=== PATIENT | female | born 1955 ===

== ENCOUNTER 2017-12-14 08:36 | Emergency (ER) | payer OTHER ==
--- NOTE | 2017-12-14 08:52 | C.PDOC ---
History Of Present Illness 62 years old female with no PMHx presents to ED for complaints of diffuse abdominal pain associated with constipation and straining. Patient states she is visiting from [facility] since September. Patient also reports that she moves bowels everyday in hard and small amounts and noticed small amounts of bleeding few days ago and got concerned which prompted the ED visit. Patient also states she does not eat vegetables because they make her gassy, does not eat processed foods, and drinks a lot of water. Denies fever, chills, nausea, or vomiting. Patient states she has not taken any medication for constipation. Time Seen by Provider: 12/14/17 08:48 Chief Complaint (Nursing): Abdominal Pain History Per: Patient History/Exam Limitations: no limitations Onset/Duration Of Symptoms: Days Current Symptoms Are (Timing): Still Present Location Of Pain/Discomfort: Diffuse Radiation Of Pain To:: None Associated Symptoms: Constipation. denies: Fever, Chills, Nausea, Vomiting Exacerbating Factors: None Alleviating Factors: None Last Bowel Movement: Today Recent travel outside of the [place]: No Abnormal Vaginal Bleeding: No Past Medical History Reviewed: Historical Data, Nursing Documentation, Vital Signs Vital Signs: Last Vital Signs Temp 97.9 F 12/14/17 08:48 Pulse 71 12/14/17 08:48 Resp 16 12/14/17 08:48 BP 148/84 12/14/17 08:48 Pulse Ox 98 12/14/17 08:48 - Medical History PMH: No Chronic Diseases Family History: States: No Known Family Hx Review Of Systems Constitutional: Negative for: Fever, Chills Gastrointestinal: Positive for: Abdominal Pain (Diffuse ), Constipation ( Straining ), Hematochezia (Small amounts ). Negative for: Nausea, Vomiting, Diarrhea Skin: Negative for: Rash Neurological: Negative for: Weakness, Numbness Physical Exam - Physical Exam Appears: Non-toxic, No Acute Distress Skin: Normal Color, Warm, Dry, No Rash Head: Atraumatic, Normacephalic Eye(s): bilateral: Normal Inspection, PERRL, EOMI Oral Mucosa: Moist Neck: Normal ROM, Supple Chest: Symmetrical, No Tenderness Cardiovascular: Rhythm Regular, No Murmur Respiratory: Normal Breath Sounds, No Rales, No Rhonchi, No Wheezing Gastrointestinal/Abdominal: Normal Exam, Bowel Sounds (Active ), Soft, No Tenderness, No Guarding, No Rebound Rectal: Heme Negative, Other (Hard brown stool in Occult ) Extremity: Bilateral: Atraumatic, Normal Color And Temperature, Normal ROM Neurological/Psych: Oriented x3, Normal Speech Gait: Steady ED Course And Treatment - Other Rad Abdomen X-Ray X-Ray: Viewed By Me, Read By Radiologist Interpretation: Date of service: 12/14/2017. HISTORY: constipation. COMPARISON: None available. FINDINGS: BOWEL: Moderate constipation. Nonobstructive bowel gas pattern. No definite free air. BONES: Osseous demineralization. Degenerative changes. Mild scoliosis. OTHER FINDINGS: None. IMPRESSION: Moderate constipation. Medical Decision Making Medical Decision Making: Plan: * Ordered abdomen x-Ray and urinalysis (Occult blood) Progress: * Hemeoccult negative for blood. * Retained stool. * Sent home with Fleet relapse and pharmaceutical medication. Patient is stable for discharge. Disposition Counseled Patient/Family Regarding: Studies Performed, Diagnosis, Need For Followup, Rx Given - Disposition Referrals: [facility] [Outside] Disposition: HOME/ ROUTINE Disposition Time: 10:20 Condition: STABLE Additional Instructions: [place] bharti agua. No coma ball ni arroz. Sigua en la clinica. Prescriptions: Magnesium Citrate 295 ml PO BID #2 bot Phosphate Enema [Fleet Enema 135 Ml] 30 ml RC DAILY #2 nma Polyethylene Glycol 3350 [Miralax] 17 gm PO DAILY #12 ml Wheat Dextrin [Benefiber] 144 gm PO DAILY #1 powder Instructions: Constipation, Adult (DC) Forms: [facility] (Uruguayan), Gen Discharge Inst [place]ayan - POA Present On Arrival: None - Clinical Impression Clinical Impression: Constipation - Scribe Statement The provider has reviewed the documentation as recorded by the Ольгаibjuan daniel Hodges All medical record entries made by the Scribe were at my direction and personally dictated by me. I have reviewed the chart and agree that the record accurately reflects my personal performance of the history, physical exam, medical decision making, and the department course for this patient. I have also personally directed, reviewed, and agree with the discharge instructions and disposition.
[2017-12-14 08:57] VITALS: TEMP 97.9
--- NOTE | 2017-12-14 10:13 | RAD ---
Date of service: 12/14/2017 HISTORY: constipation COMPARISON: None available. FINDINGS: BOWEL: Moderate constipation. Nonobstructive bowel gas pattern. No definite free air. BONES: Osseous demineralization. Degenerative changes. Mild scoliosis. OTHER FINDINGS: None. IMPRESSION: Moderate constipation.
[2017-12-14 10:41] VITALS: BP 142/56; PULSE 59; RESP 17; O2SAT 100
== END 2017-12-14 10:50 | disposition home or self-care (01) ==
LOC: C.ER 08:36
DX: K59.00 Constipation, unspecified (principal)
CPT/HCPCS: 74018; 99283; G0328